=== PATIENT | female | born 1995 | race Caucasian/White ===

== ENCOUNTER → 2017-02-01 | Outpatient (CLI) | payer BC ==
[2017-02-01 12:04] LABS: BASOPHILS # (AUTO) 0.01 10*3/UL; BASOPHILS % (AUTO) 0.2 % (0-1); EOSINOPHILS # (AUTO) 0.13 10*3/UL; EOSINOPHILS % (AUTO) 2.1 % (0-8); HEMATOCRIT 38.2 % (37.0-47.0); HEMOGLOBIN 12.8 g/dL (12.0-16.0); LYMPHOCYTES # (AUTO) 1.49 10*3/uL; MEAN CORPUSCULAR HEMOGLOBIN 30.5 PG (27-31); MEAN CORPUSCULAR HGB CONC 33.5 g/dL (33-37); MEAN PLATELET VOLUME 9.1 FL (7.4-12.2); MONOCYTES # (AUTO) 0.67 10*3/UL (0.3-0.8); MONOCYTES % (AUTO) 10.6 % (5-15); NEUTROPHILS # (AUTO) 4.03 10*3/UL; NEUTROPHILS % (AUTO) 63.4 % (50-80)
[2017-02-01 12:18] LABS: PLATELET MORPHOLOGY COMMENT NORMAL MORPHOLOGY (NORM); RBC MORPHOLOGY COMMENT NORMAL MORPHOLOGY (NORM); WBC MORPHOLOGY COMMENT NORMAL MORPHOLOGY (NORM)
[2017-02-01 13:00] LABS: HIV ANTIBODY NEGATIVE (N); HIV-1 P24 ANTIGEN NEGATIVE (N)
[2017-02-02 17:38] LABS: HEP B SURFACE AG Negative (Negative)
== END ==
LOC: MOB LAB 11:13
PROVIDERS: ATTEND Physician Assistant Medical
DX: Z36 Encounter for antenatal screening of mother (principal); O99.331 Smoking (tobacco) complicating pregnancy, first trimester; Z3A.01 Less than 8 weeks gestation of pregnancy
CPT/HCPCS: 36415; 80081; 84702; 86900; 86901; 87088

== ENCOUNTER → 2017-02-11 | Outpatient (CLI) | payer BC ==
--- NOTE | 2017-02-11 12:21 | DI ---
US OB LESS THAN 14 WEEKS,02/11/2017 10:10 AM: Clinical History: Threatened . Previous Exam: September 23, 2015 Findings: Multiple grayscale and color Doppler sonographic images are obtained through the pelvis, and demonstr ate a gestational sac with poorly differentiated placenta. The sac appears somewhat deflated as well. There is a single pole seen measuring 14 mm from crown coronal and corresponding with an estima jose gestational age of 7 weeks 6 days. There were no detectable Doppler heart tones. The ovaries were normal bilaterally with normal Doppler flow. Impression: Hypoechoic pole with an estimated gestational age of 7 weeks 6 days with no detectable Doppler heart tones worrisome for demise. Recommend correlation with serial hCG levels.
--- NOTE | 2017-02-11 15:33 | DI ---
US OB TRANSVAGINAL,02/11/2017 10:10 AM: Clinical History: Threatened . Previous Exam: None at this facility. Findings: Multiple transvaginal grayscale and color Doppler sonographic images are obtained through the pelvis. The uterus measures 9.9 x 5.3 x 6.5 cm. There is a gestational sac containing a single pole measuring 16 mm from crown from correspondi ng with an estimated gestational age of 8 weeks one day. The pole is somewhat hydropic and no detected Doppler heart tones are seen. The ovaries are normal bilaterally. Impression: Single intrauterine gestation with crown-rump length corresponding with an estimated gestational age of 8 weeks one day. This is larger than the estimated gestational age by last menstrual period, which is likely secondary to hydrops. Correlate with serial hCG.
== END ==
LOC: US 10:02
PROVIDERS: ATTEND Student in an Organized Health Care Education/Training Program
DX: O20.0 Threatened abortion (principal)
CPT/HCPCS: 36415; 76801; 76817; 84702

== ENCOUNTER → 2017-03-14 | Outpatient (CLI) | payer BC | LOC: LAB 14:56 | PROVIDERS: ATTEND Student in an Organized Health Care Education/Training Program | DX: O03.9 Complete or unspecified spontaneous abortion without complication (principal) | CPT/HCPCS: 36415; 84702 ==